=== PATIENT | male | born 1990 | race Caucasian/White ===

== ENCOUNTER 2016-03-04 14:45 | Emergency (ER) | payer SELFPAY ==
[~2016-03-04] VITALS: Ht 167.6 cm; Wt 87.0 kg
[2016-03-04 14:46] VITALS: BP 144/81; PULSE 82; RESP 12; TEMP 98.2; O2SAT 98
[2016-03-04 14:53] VITALS: BP 147/78; PULSE 79; RESP 20; TEMP 98.7; O2SAT 98
--- NOTE | 2016-03-04 15:17 | PD ---
HPI Chief Complaint: Complaint Time Seen by Provider: 14:50 Travel History International Travel<30 days: No Contact w/Intl Traveler<30days: No Traveled to known affect area: No History of Present Illness HPI Skin otherwise healthy 25-year-old male presents to the emergency department complaining of blood in his urine. Denies any other symptoms at all. Symptoms started today. His never had previous similar symptoms. No history of kidney stones. No history of bruising or other bleeding. Is not taking NSAIDs. Did drink some of the weekend. Not otherwise dehydrated. History Past Medical History Medical History: Denies Significant Hx Influenza Vaccination: No Past Surgical History Surgical History: No Previous Surgery Social History Alcohol Use: Yes (2 BERS DAILY ) Tobacco Use: Yes (1/2 PPD ) Allergies-Medications (Allergen,Severity, Reaction): Coded Allergies: No Known Allergies (Unverified , 03/04/16) Reported Meds & Prescriptions Reported Meds & Active Scripts Active No Active Prescriptions or Reported Medications Review of Systems Except as stated in HPI: all other systems reviewed are Neg Physical Exam Narrative GENERAL: Well-appearing 25-year-old man, no acute distress. SKIN: Warm and dry. HEAD: Atraumatic. Normocephalic. CARDIOVASCULAR: Regular rate and rhythm. No murmur appreciated. RESPIRATORY: No accessory muscle use. Clear to auscultation. Breath sounds equal bilaterally. GASTROINTESTINAL: Abdomen soft, non-tender, nondistended. Hepatic and splenic margins not palpable. No CVA tenderness. MUSCULOSKELETAL: No obvious deformities. No edema. NEUROLOGICAL: Awake and alert. No obvious cranial nerve deficits. Motor grossly within normal limits. Normal speech. PSYCHIATRIC: Appropriate mood and affect; insight and judgment normal. Data Data Last Documented VS Vital Signs Date Time Temp Pulse Resp B/P Pulse Ox O2 Delivery O2 Flow Rate FiO2 03/04/16 14:53 98.7 79 20 147/78 98 03/04/16 14:46 Room Air Orders Urinalysis - C+S If Indicated (03/04/16 15:11) Basic Metabolic Panel (Bmp) (03/04/16 15:11) Labs Laboratory Tests Test 03/04/16 03/04/16 15:01 15:51 Urine Color RED Urine Turbidity HAZY Urine pH 7.0 Urine Specific [place] 1.021 Urine Protein 30 mg/dL Urine Glucose (UA) NEG mg/dL Urine Ketones NEG mg/dL Urine Occult Blood LARGE Urine Nitrite NEG Urine Bilirubin NEG Urine Urobilinogen LESS THAN 2.0 MG/DL Urine Leukocyte Esterase TRACE Urine RBC /hpf Microscopic Urinalysis Comment CULT NOT INDICATED Sodium Level 137 MEQ/L Potassium Level 4.1 MEQ/L Chloride Level 103 MEQ/L Carbon Dioxide Level 28.5 MEQ/L Anion Gap 6 MEQ/L Blood Urea Nitrogen 21 MG/DL Creatinine 0.95 MG/DL Estimat Glomerular Filtration 97 ML/MIN Rate Random Glucose 80 MG/DL Calcium Level 8.7 MG/DL [facility] Medical Decision Making Medical Screen Exam Complete: Yes Emergency Medical Condition: Yes Interpretation(s) BMP unremarkable. UA with hematuria. Differential Diagnosis Stone, mass, bleeding diathesis, other Narrative Course Medical decision making 25-year-old male presents emergent department painless hematuria. Looks otherwise well. Father gets kidney stones. He's never had them. It's likely what is going on. Looks otherwise well. We'll check kidney function, check UA. Recommend outpatient follow-up for further evaluation and rule out malignancy. Diagnosis Primary Impression: Hematuria Referrals: Patrice Hess DO call for appointment Additional Instructions: If symptoms not immediately resolve or if they recurred all follow-up with urology for further evaluation. Med/Other Pt SpecificInfo: No Change to Meds Scripts No Active Prescriptions or Reported Meds Disposition: 01 DISCHARGE HOME Condition: Leeroy Alexander MD Mar 04, 2016 15:17
[2016-03-04 16:19] LABS: BLOOD, URINE LARGE (NEG); COMMENT (UR) CULT NOT INDICATED; CULTURE IF INDICATED CULT NOT INDICATED; GLUCOSE,URINE NEG (NEG); KETONE, URINE NEG (NEG); NITRITE,URINE NEG (NEG)
[2016-03-04 16:28] LABS: URINE COLOR RED (YELLW/STRAW)
[2016-03-04 16:43] LABS: BICARBONATE 28.5 MEQ/L (21.0-32.0); POTASSIUM 4.1 MEQ/L (3.5-5.1)
== END 2016-03-04 17:12 | disposition home or self-care (01) ==
LOC: NEPC 14:45
DX: R31.9 Hematuria, unspecified (principal); F17.210 Nicotine dependence, cigarettes, uncomplicated
CPT/HCPCS: 80048; 81001; 99283

== ENCOUNTER 2016-03-08 01:46 | Emergency (ER) | payer SELFPAY ==
[~2016-03-08] VITALS: Ht 167.6 cm; Wt 90.0 kg
[2016-03-08 01:49] VITALS: BP 142/79; PULSE 70; RESP 18; TEMP 98.4; O2SAT 98
[2016-03-08] MEDS ORDERED: SODIUM CHLOR 0.9% 1000 ML INJ 1,000 ML IV SCH (01:52)
[2016-03-08] MEDS ORDERED: MORPHINE SULFATE 4 MG/ML INJ IV PUSH ONE (02:00)
[2016-03-08] MEDS ORDERED: ONDANSETRON HCL 4 MG/2 ML VIAL IVP ONE (02:00)
[2016-03-08] MEDS ORDERED: SODIUM CHLORIDE 0.9% FLUSH 5 ML FLUSH IVF PRN (02:00)
[2016-03-08] MEDS ORDERED: KETOROLAC TROMETHAMINE 30 MG/ML (IVP) VIAL IVP ONE (02:00)
--- NOTE | 2016-03-08 02:17 | PD ---
HPI Chief Complaint: Abdominal Pain Time Seen by Provider: 01:51 Travel History International Travel<30 days: No Contact w/Intl Traveler<30days: No Traveled to known affect area: No History of Present Illness HPI The patient is a 25-year-old male who presents to the emergency department via EMS for abdominal pain. The patient states she was awakened at approximately midnight with right sided flank pain. The pain is located right flank and radiates to right lower quadrant, he felt like he needed to have a bowel movement, however, was unable to have a bowel movement. The patient did complain of nausea associated with abdominal pain, initially was 10/10, now is 5 /10. The patient states he was seen in the emergency department several days ago for hematuria, but had no imaging performed. He denies any history of nephrolithiasis, pyelonephritis, gallstones, or previous abdominal surgeries. He denies any associated fever, chills, or sweats. Symptoms are moderate without any alleviating or exacerbating factors. PFSH Past Medical History Medical History: Denies Significant Hx Tetanus Vaccination: Unknown Influenza Vaccination: No Past Surgical History Surgical History: No Previous Surgery Social History Alcohol Use: Yes (beer ) Tobacco Use: Yes (1/2 PPD ) Substance Use: No Allergies-Medications (Allergen,Severity, Reaction): Coded Allergies: No Known Allergies (Unverified , 03/08/16) Reported Meds & Prescriptions Reported Meds & Active Scripts Active No Active Prescriptions or Reported Medications Review of Systems Except as stated in HPI: all other systems reviewed are Neg General / Constitutional: No: Fever, Chills Cardiovascular: No: Chest Pain or Discomfort Respiratory: No: Shortness of Breath Gastrointestinal: Positive: Nausea, Abdominal Pain, No: Vomiting, Diarrhea Genitourinary: Positive: Hematuria (hematuria 2 days ago), Flank Pain Skin: No Rash Physical Exam Narrative GENERAL: Awake, alert, pleasant 25-year-old male who appears his stated age is in no acute respiratory distress. SKIN: Warm and dry. HEAD: Atraumatic. Normocephalic. EYES: Pupils equal and round. No scleral icterus. No injection or drainage. ENT: No nasal bleeding or discharge. Mucous membranes pink and moist. NECK: Trachea midline. No JVD. CARDIOVASCULAR: Regular rate and rhythm. No murmur appreciated. RESPIRATORY: No accessory muscle use. Clear to auscultation. Breath sounds equal bilaterally. GASTROINTESTINAL: Abdomen soft, mild tenderness and right flank and right lower quadrant. No rebound tenderness, guarding, or rigidity. Back: No CVA tenderness. MUSCULOSKELETAL: No obvious deformities. No clubbing. No cyanosis. No edema. NEUROLOGICAL: Awake and alert. No obvious cranial nerve deficits. Motor grossly within normal limits. Normal speech. PSYCHIATRIC: Appropriate mood and affect; insight and judgment normal. Data Data Last Documented VS Vital Signs Date Time Temp Pulse Resp B/P Pulse Ox O2 Delivery O2 Flow Rate FiO2 03/08/16 01:49 98.4 70 18 142/79 98 Orders Complete Blood Count With Diff (03/08/16 01:52) Comprehensive Metabolic Panel (03/08/16 01:52) Lipase (03/08/16 01:52) Urinalysis - C+S If Indicated (03/08/16 01:52) Ct Abd/Pel W/O Iv Contrast (03/08/16 01:52) Iv Access Insert/Monitor (03/08/16 01:52) Ecg Monitoring (03/08/16 01:52) Oximetry (03/08/16 01:52) Morphine Inj (Morphine Inj) (03/08/16 02:00) Ondansetron Inj (Zofran Inj) (03/08/16 02:00) Sodium Chlor 0.9% 1000 Ml Inj (Ns 1000 M (03/08/16 01:52) Sodium Chloride 0.9% Flush (Ns Flush) (03/08/16 02:00) Ketorolac Inj (Toradol Inj) (03/08/16 02:00) Urine Culture (03/08/16 02:20) Labs Laboratory Tests Test 03/08/16 03/08/16 02:00 02:20 White Blood Count 5.8 TH/MM3 Red Blood Count 4.01 MIL/MM3 Hemoglobin 13.5 GM/DL Hematocrit 39.1 % Mean Corpuscular Volume 97.6 FL Mean Corpuscular Hemoglobin 33.7 PG Mean Corpuscular Hemoglobin 34.6 % Concent Red Cell Distribution Width 12.1 % Platelet Count 207 TH/MM3 Mean Platelet Volume 9.6 FL Neutrophils (%) (Auto) 65.3 % Lymphocytes (%) (Auto) 21.5 % Monocytes (%) (Auto) 9.9 % Eosinophils (%) (Auto) 2.8 % Basophils (%) (Auto) 0.5 % Neutrophils # (Auto) 3.8 TH/MM3 Lymphocytes # (Auto) 1.3 TH/MM3 Monocytes # (Auto) 0.6 TH/MM3 Eosinophils # (Auto) 0.2 TH/MM3 Basophils # (Auto) 0.0 TH/MM3 CBC Comment DIFF FINAL Differential Comment Sodium Level 141 MEQ/L Potassium Level 3.7 MEQ/L Chloride Level 109 MEQ/L Carbon Dioxide Level 25.5 MEQ/L Anion Gap 7 MEQ/L Blood Urea Nitrogen 20 MG/DL Creatinine 1.01 MG/DL Estimat Glomerular Filtration 90 ML/MIN Rate Random Glucose 106 MG/DL Calcium Level 8.2 MG/DL Total Bilirubin 0.3 MG/DL Aspartate Amino Transf 15 U/L (AST/SGOT) Alanine Aminotransferase 22 U/L (ALT/SGPT) Alkaline Phosphatase 50 U/L Total Protein 6.7 GM/DL Albumin 3.6 GM/DL Lipase 74 U/L Urine Color YELLOW Urine Turbidity CLEAR Urine pH 6.0 Urine Specific [place] 1.017 Urine Protein TRACE mg/dL Urine Glucose (UA) NEG mg/dL Urine Ketones NEG mg/dL Urine Occult Blood MOD Urine Nitrite NEG Urine Bilirubin NEG Urine Urobilinogen LESS THAN 2.0 MG/DL Urine Leukocyte Esterase NEG Urine RBC /hpf Urine WBC 20 /hpf Urine Bacteria RARE /hpf Urine Mucus FEW /lpf Microscopic Urinalysis Comment CULTURE INDICATED MDM Medical Decision Making Medical Screen Exam Complete: Yes Emergency Medical Condition: Yes Medical Record Reviewed: Yes Interpretation(s) Laboratory Tests Test 03/08/16 03/08/16 02:00 02:20 White Blood Count 5.8 TH/MM3 Red Blood Count 4.01 MIL/MM3 Hemoglobin 13.5 GM/DL Hematocrit 39.1 % Mean Corpuscular Volume 97.6 FL Mean Corpuscular Hemoglobin 33.7 PG Mean Corpuscular Hemoglobin 34.6 % Concent Red Cell Distribution Width 12.1 % Platelet Count 207 TH/MM3 Mean Platelet Volume 9.6 FL Neutrophils (%) (Auto) 65.3 % Lymphocytes (%) (Auto) 21.5 % Monocytes (%) (Auto) 9.9 % Eosinophils (%) (Auto) 2.8 % Basophils (%) (Auto) 0.5 % Neutrophils # (Auto) 3.8 TH/MM3 Lymphocytes # (Auto) 1.3 TH/MM3 Monocytes # (Auto) 0.6 TH/MM3 Eosinophils # (Auto) 0.2 TH/MM3 Basophils # (Auto) 0.0 TH/MM3 CBC Comment DIFF FINAL Differential Comment Sodium Level 141 MEQ/L Potassium Level 3.7 MEQ/L Chloride Level 109 MEQ/L Carbon Dioxide Level 25.5 MEQ/L Anion Gap 7 MEQ/L Blood Urea Nitrogen 20 MG/DL Creatinine 1.01 MG/DL Estimat Glomerular Filtration 90 ML/MIN Rate Random Glucose 106 MG/DL Calcium Level 8.2 MG/DL Total Bilirubin 0.3 MG/DL Aspartate Amino Transf 15 U/L (AST/SGOT) Alanine Aminotransferase 22 U/L (ALT/SGPT) Alkaline Phosphatase 50 U/L Total Protein 6.7 GM/DL Albumin 3.6 GM/DL Lipase 74 U/L Urine Color YELLOW Urine Turbidity CLEAR Urine pH 6.0 Urine Specific [place] 1.017 Urine Protein TRACE mg/dL Urine Glucose (UA) NEG mg/dL Urine Ketones NEG mg/dL Urine Occult Blood MOD Urine Nitrite NEG Urine Bilirubin NEG Urine Urobilinogen LESS THAN 2.0 MG/DL Urine Leukocyte Esterase NEG Urine RBC /hpf Urine WBC 20 /hpf Urine Bacteria RARE /hpf Urine Mucus FEW /lpf Microscopic Urinalysis Comment CULTURE INDICATED Last Impressions Abdomen/Pelvis CT 03/08/16 0152 Signed Impressions: Service Date/Time: Tuesday, March 08, 2016 02:39 - CONCLUSION: Approximate 3- 4 mm right proximal ureteral stone causing slight hydronephrosis. Curly Pierre MD Differential Diagnosis Differential diagnosis includes nephrolithiasis, hydronephrosis, pyelonephritis , atypical appendicitis, testicular torsion, epididymitis. Narrative Course IV was established, labs are drawn and sent, and the patient was placed on cardiac telemetry monitoring and continuous pulse oximetry monitoring. The patient was administered morphine, Toradol, Zofran, and IV fluids. UA was ordered. CT of the abdomen and pelvis without IV contrast was ordered. UA reveals 20 WBCs and innumerable RBCs. CT reveals a 3-4 mm stone. Patient has mild hydronephrosis. The patient was reevaluated at 3:10 AM, his pain had resolved. The patient will be discharged home on Bactrim, [place], ibuprofen, and Flomax. He is advised to strain his urine and follow-up with urologist. Return if symptoms worsen or progress. Diagnosis Primary Impression: Nephrolithiasis Patient Instructions: General Instructions Additional Instructions: Please provide a patient a strainer for his urine. Please provide the patient a copy of his CT results and lab results at discharge. Medications as directed. Follow-up with urology. Return if symptoms worsen or progress. Med/Other Pt SpecificInfo: Prescription(s) given Scripts Sulfamethoxazole-Trimethoprim (Bactrim DS)800-160 Mg Tab1 Tab PO BID #14 TAB Ref 0 Prov:Jim Avitia MD 03/08/16 Tamsulosin (Flomax)0.4 Mg Cap0.4 Mg PO HS 7 Days Ref 0 Prov:Jim Avitia MD 03/08/16 Ibuprofen 600 Mg Qgi548 Mg PO Q6H PRN (Pain/Inflammation) #20 TAB Ref 0 Prov:Jim Avitia MD 03/08/16 Hydrocodone-Acetaminophen ([place])5-325 mg Tab1 Tab PO Q6H PRN (PAIN) #20 TAB Ref 0 Prov:Jim Avitia MD 03/08/16 Disposition: 01 DISCHARGE HOME Condition: Stable Jim Avitia MD Mar 08, 2016 02:17
[2016-03-08 02:18] LABS: AUTOMATED NEUTROPHIL # 3.8 TH/MM3 (1.8-7.7); BASOPHIL % 0.5 % (0.0-2.0); EOSINOPHIL # 0.2 TH/MM3 (0-0.4); EOSINOPHIL % 2.8 % (0.0-4.0); HEMATOCRIT 39.1 % (39.0-51.0); HEMO FLAGS DIFF FINAL; LYMPH % 21.5 % (9.0-44.0); LYMPHOCYTE # 1.3 TH/MM3 (1.0-4.8); MEAN CELL VOLUME 97.6 FL (80.0-100.0); MEAN CORPUSCULAR HEMOGLOBIN 33.7 PG (27.0-34.0); MEAN CORPUSCULAR HGB CONC 34.6 % (32.0-36.0); MONO % 9.9 % (0.0-8.0); NEUT % 65.3 % (16.0-70.0); PLATELET COUNT 207 TH/MM3 (150-450); RED BLOOD COUNT 4.01 MIL/MM3 (4.50-5.90); RED CELL DISTRIBUTION WIDTH 12.1 % (11.6-17.2); WHITE BLOOD COUNT 5.8 TH/MM3 (4.0-11.0)
[2016-03-08 02:34] LABS: ALT (GPT) 22 U/L (12-78); ANION GAP 7 MEQ/L (5-15); AST (GOT) 15 U/L (15-37); BICARBONATE 25.5 MEQ/L (21.0-32.0); BLOOD UREA NITROGEN 20 MG/DL (7-18); CHLORIDE 109 MEQ/L (98-107); GLOMERULAR FILTRATION RATE 90 ML/MIN (>89); POTASSIUM 3.7 MEQ/L (3.5-5.1); SODIUM (NA) 141 MEQ/L (136-145)
[2016-03-08 02:37] LABS: ALKALINE PHOSPHATASE 50 U/L (45-117); TOTAL BILIRUBIN ADULT 0.3 MG/DL (0.2-1.0)
[2016-03-08 02:49] LABS: BACTERIA, URINE RARE /hpf; BLOOD, URINE MOD (NEG); COMMENT (UR) CULTURE INDICATED; CULTURE IF INDICATED CULTURE INDICATED; GLUCOSE,URINE NEG (NEG); KETONE, URINE NEG (NEG); MUCUS URINE FEW /lpf (OCC); NITRITE,URINE NEG (NEG); URINE COLOR YELLOW (YELLW/STRAW)
--- NOTE | 2016-03-08 03:01 | RADRPT ---
EXAM DATE/TIME: 03/08/2016 02:39 [facility] COMPARISON: No previous studies available for comparison. INDICATIONS : Right flank and right lower quadrant pain today. ORAL CONTRAST: No oral contrast ingested. RADIATION DOSE: 12.29 CTDIvol (mGy) MEDICAL HISTORY : None SURGICAL HISTORY : None. ENCOUNTER: Initial ACUITY: 1 day PAIN SCALE: 5/10 LOCATION: Right flank TECHNIQUE: Volumetric scanning of the abdomen and pelvis was performed. Using automated exposure control and ad justment of the mA and/or kV according to patient size, radiation dose was kept as low as reasonably achievable to obtain optimal diagnostic quality images. FINDINGS: CT Abdomen: There is slight hydronephrosis in the right kidney due to an approximate 3-4 mm right pro ximal ureteral stone. The liver, spleen, pancreas, left kidney, adrenals are unremarkable. There is n o evidence for any appreciable pathological adenopathy, free fluid, or bowel obstruction. CT pelvis: There is no evidence for mass, abscess formation, or any significant adenopathy within the pelvis. CONCLUSION: Approximate 3-4 mm right proximal ureteral stone causing slight hydronephrosis. Curly Pierre MD on March 08, 2016 at 2:57 Board Certified Radiologist. This report was verified electronically.
[2016-03-08] MEDS ORDERED: IBUP-232 PO (03:12)
[2016-03-08] MEDS ORDERED: BACT800T5 PO (03:12)
[2016-03-08] MEDS ORDERED: TAMS5CAP PO (03:12)
[2016-03-08] MEDS ORDERED: NORC5TAB PO (03:12)
== END 2016-03-08 03:34 | disposition home or self-care (01) ==
LOC: NEPC 01:46
DX: N20.0 Calculus of kidney (principal); F10.10 Alcohol abuse, uncomplicated; F17.210 Nicotine dependence, cigarettes, uncomplicated
CPT/HCPCS: 74176; 80053; 81001; 83690; 85025; 87086; 96374; 96375; 99284; J1885; J2270; J7030

== ENCOUNTER 2016-03-23 08:22 | Emergency (ER) | payer SELFPAY ==
[~2016-03-23] VITALS: Ht 167.6 cm; Wt 92.0 kg
[~2016-03-23 08:22] MED LIST: BACT800T5 PO; IBUP-232 PO; NORC5TAB PO; TAMS5CAP PO
[2016-03-23 08:24] VITALS: BP 162/95; PULSE 104; RESP 20; TEMP 98.2; O2SAT 95
[2016-03-23] MEDS ORDERED: SODIUM CHLOR 0.9% 1000 ML INJ 1,000 ML IV SCH (08:40)
[2016-03-23] MEDS ORDERED: MORPHINE SULFATE 4 MG/ML INJ IV PUSH ONE (08:45)
[2016-03-23] MEDS ORDERED: SODIUM CHLORIDE 0.9% FLUSH 5 ML FLUSH IVF PRN (08:45)
[2016-03-23] MEDS ORDERED: ONDANSETRON HCL 4 MG/2 ML VIAL IVP ONE (08:45)
--- NOTE | 2016-03-23 08:59 | PD ---
HPI Chief Complaint: Abdominal Pain Time Seen by Provider: 08:34 Travel History International Travel<30 days: No Contact w/Intl Traveler<30days: No Traveled to known affect area: No History of Present Illness HPI Patient is a 25-year-old male who presents to emergency room with complaints of right lower abdominal pain. Patient reports that he was seen in the emergency room a few weeks ago and was diagnosed with a 3-4 mm right-sided kidney stone. Patient reports that he does not think that he passed this kidney stone. Reports that since the pain has been overall intermittent in nature. Patient reports that this morning, he began to have intractable right lower quadrant abdominal pain. Patient reports severe intractable pain with nausea. Denies fevers or chills. Denies dysuria, urinary urgency or frequency. Denies hematuria with this. PFSH Past Medical History Medical History: Denies Significant Hx Diminished Hearing: No Tetanus Vaccination: > 5 Years Influenza Vaccination: No Past Surgical History Surgical History: No Previous Surgery Family History Family History: Negative Social History Alcohol Use: Yes (beer ) Tobacco Use: Yes (1/2 PPD ) Substance Use: No Allergies-Medications (Allergen,Severity, Reaction): Coded Allergies: No Known Allergies (Unverified , 03/23/16) Reported Meds & Prescriptions Reported Meds & Active Scripts Active Flomax (Tamsulosin HCl) 0.4 Mg Cap 0.4 Mg PO HS Percocet (Oxycodone-Acetaminophen) 5-325 mg Tab 1 Tab PO Q4H PRN Review of Systems General / Constitutional: No: Fever Eyes: No: Visual changes HENT: No: Headaches Cardiovascular: No: Chest Pain or Discomfort Respiratory: No: Shortness of Breath Gastrointestinal: Positive: Nausea, Abdominal Pain, No: Diarrhea Genitourinary: No: Dysuria Musculoskeletal: No: Pain Skin: No Rash Neurologic: No: Weakness Psychiatric: No: Depression Endocrine: No: Polydipsia Hematologic/Lymphatic: No: Easy Bruising Physical Exam Narrative GENERAL: Moderate distress SKIN: Warm and dry. HEAD: Atraumatic. Normocephalic. EYES: No injection or drainage. ENT: No nasal bleeding or discharge. Mucous membranes pink and moist. NECK: Trachea midline. No JVD. CARDIOVASCULAR: Regular rate and rhythm. No murmur appreciated. RESPIRATORY: No accessory muscle use. Clear to auscultation. Breath sounds equal bilaterally. GASTROINTESTINAL: Abdomen soft, diffuse abdominal pain with guarding on evaluation MUSCULOSKELETAL: No obvious deformities. No clubbing. No cyanosis. No edema. NEUROLOGICAL: Awake and alert. No obvious cranial nerve deficits. Motor grossly within normal limits. Normal speech. PSYCHIATRIC: Patient anxious on exam; insight and judgment normal. Data Data Last Documented VS Vital Signs Date Time Temp Pulse Resp B/P Pulse Ox O2 Delivery O2 Flow Rate FiO2 03/23/16 09:48 20 03/23/16 08:24 98.2 104 162/95 95 Orders Complete Blood Count With Diff (03/23/16 08:40) Comprehensive Metabolic Panel (03/23/16 08:40) Prothrombin Time / Inr (Pt) (03/23/16 08:40) Act Partial Throm Time (Ptt) (03/23/16 08:40) Urinalysis - C+S If Indicated (03/23/16 08:40) Iv Access Insert/Monitor (03/23/16 08:40) Morphine Inj (Morphine Inj) (03/23/16 08:45) Ondansetron Inj (Zofran Inj) (03/23/16 08:45) Sodium Chlor 0.9% 1000 Ml Inj (Ns 1000 M (03/23/16 08:40) Sodium Chloride 0.9% Flush (Ns Flush) (03/23/16 08:45) Abdomen, Kub Only (03/23/16 ) Ketorolac Inj (Toradol Inj) (03/23/16 09:00) Us Kidney/Renal/Bladder (03/23/16 ) Labs Laboratory Tests Test 03/23/16 08:45 White Blood Count 6.2 TH/MM3 Red Blood Count 4.30 MIL/MM3 Hemoglobin 14.5 GM/DL Hematocrit 41.9 % Mean Corpuscular Volume 97.5 FL Mean Corpuscular Hemoglobin 33.7 PG Mean Corpuscular Hemoglobin 34.6 % Concent Red Cell Distribution Width 12.3 % Platelet Count 237 TH/MM3 Mean Platelet Volume 9.5 FL Neutrophils (%) (Auto) 58.2 % Lymphocytes (%) (Auto) 29.6 % Monocytes (%) (Auto) 9.0 % Eosinophils (%) (Auto) 2.5 % Basophils (%) (Auto) 0.7 % Neutrophils # (Auto) 3.6 TH/MM3 Lymphocytes # (Auto) 1.8 TH/MM3 Monocytes # (Auto) 0.6 TH/MM3 Eosinophils # (Auto) 0.2 TH/MM3 Basophils # (Auto) 0.0 TH/MM3 CBC Comment DIFF FINAL Differential Comment Prothrombin Time 11.3 SEC Prothromb Time International 1.0 RATIO Ratio Activated Partial 25.6 SEC Thromboplast Time Urine Color YELLOW Urine Turbidity HAZY Urine pH 8.5 Urine Specific [place] 1.021 Urine Protein 30 mg/dL Urine Glucose (UA) NEG mg/dL Urine Ketones NEG mg/dL Urine Occult Blood MOD Urine Nitrite NEG Urine Bilirubin NEG Urine Urobilinogen LESS THAN 2.0 MG/DL Urine Leukocyte Esterase NEG Urine RBC /hpf Urine Bacteria RARE /hpf Urine Mucus FEW /lpf Microscopic Urinalysis Comment CULT NOT INDICATED Sodium Level 140 MEQ/L Potassium Level 3.9 MEQ/L Chloride Level 105 MEQ/L Carbon Dioxide Level 23.1 MEQ/L Anion Gap 12 MEQ/L Blood Urea Nitrogen 10 MG/DL Creatinine 1.49 MG/DL Estimat Glomerular Filtration 57 ML/MIN Rate Random Glucose 87 MG/DL Calcium Level 8.7 MG/DL Total Bilirubin 0.3 MG/DL Aspartate Amino Transf 20 U/L (AST/SGOT) Alanine Aminotransferase 27 U/L (ALT/SGPT) Alkaline Phosphatase 63 U/L Total Protein 8.0 GM/DL Albumin 4.4 GM/DL [facility] Medical Decision Making Medical Screen Exam Complete: Yes Emergency Medical Condition: Yes Interpretation(s) Vital Signs Date Time Temp Pulse Resp B/P Pulse Ox O2 Delivery O2 Flow Rate FiO2 03/23/16 08:24 98.2 104 20 162/95 95 CBC & BMP Diagram 03/23/16 08:45 Last Impressions Abdomen X-Ray 03/23/16 0000 Signed Impressions: Service Date/Time: Wednesday, March 23, 2016 09:02 - CONCLUSION: No acute disease. Abner Anguiano MD Differential Diagnosis Kidney stones, pyleonephritis, cystitis, appendicitis Narrative Course Patient is a 25-year-old male who presents to emergency room for evaluation of abdominal pain. Reports that symptoms began initially a few weeks ago was diagnosed with a 3-4 mm right-sided kidney stone. Reports that he does not think this kidney stone passed yet. Patient reports that he woke up this morning with severe pain to his right side of his abdomen to his bladder - reports that his symptoms are associated with nausea. An IV line was established on patient. Labs ordered as well as UA. IV fluids as well as antiemetics and pain medications ordered. Previous records reviewed Patient had a CAT scan of his abdomen and pelvis without IV contrast on March 08, 2016. CT showed an approximate 3-4 mm right proximal ureteral stone causing slight hydronephrosis. KUB ordered for evaluation of stone placement this time. Patient could potentially be passing this kidney stone at this time as he feels increased pain and pressure in his bladder. Creatinine is 1.49 today which is elevated from baseline. Creatine on March 08, 2016 was 1.01 Patient reports that he is more comfortable at this time. KUB does not show any evidence stone. Patient sent for ultrasound of kidneys to evaluate for possible hydronephrosis. Ultimately, patient understands that he will need to follow-up with urologist as he did not call to make this appointment when he was first diagnosed with a kidney stone because he reports that he thought that he would be feeling much better and would have complete resolutions of symptoms by this time. Patient has run out of his prescription for pain medications, I will refill his pain medicine prescription. Reviewed US report with patient. Patient with no hydronephrosis. Patient will follow-up with urologist as outpatient and return to ER as needed Diagnosis Primary Impression: Right flank pain Additional Impressions: Kidney stone Renal insufficiency Referrals: Eduardo Thompson MD Patient Instructions: General Instructions, Narcotic given in the ED Departure Forms: Tests/Procedures, Work Release Enter return to work date: Mar 25, 2016 Additional Instructions: Please provide patient with a copy this studies and lab work at discharge Please call urologist as soon as possible for earliest follow-up appointment Please return to the emergency room as needed Do not drive or operate heavy machinery while taking narcotic pain medication Return to emergency room if symptoms progress or worsen Please strain your urine and bring your kidney stone to your urologist office for further work up of kidney stone Med/Other Pt SpecificInfo: Prescription(s) given Scripts Tamsulosin (Flomax)0.4 Mg Cap0.4 Mg PO HS #10 CAP Ref 0 Prov:Ling Brown DO 03/23/16 Oxycodone-Acetaminophen (Percocet)5-325 mg Tab1 Tab PO Q4H PRN (PAIN) #15 TAB Ref 0 Prov:Ling Brown DO 03/23/16 Disposition: 01 DISCHARGE HOME Condition: Stable Ling Brown DO Mar 23, 2016 08:59
[2016-03-23] MEDS ORDERED: KETOROLAC TROMETHAMINE 30 MG/ML (IVP) VIAL IV PUSH ONE (09:00)
--- NOTE | 2016-03-23 09:05 | RADRPT ---
EXAM DATE/TIME: 03/23/2016 09:02 [facility] COMPARISON: No previous studies available for comparison. INDICATIONS : Right sided abdominal pain on and off for the past two weeks. Got really bad today. MEDICAL HISTORY : None. SURGICAL HISTORY : None. ENCOUNTER: Initial ACUITY: 2 weeks PAIN SCORE: 10/10 LOCATION: Right abdomen. FINDINGS: Supine view of the abdomen was performed. The abdominal bowel gas pattern is normal. No abnormal ma sses, calcifications, or organomegaly is seen. The osseous structures are unremarkable. CONCLUSION: No acute disease. Abner Anguiano MD on March 23, 2016 at 9:04 Board Certified Radiologist. This report was verified electronically.
[2016-03-23 09:18] LABS: BACTERIA, URINE RARE /hpf; BLOOD, URINE MOD (NEG); COMMENT (UR) CULT NOT INDICATED; CULTURE IF INDICATED CULT NOT INDICATED; GLUCOSE,URINE NEG (NEG); KETONE, URINE NEG (NEG); MUCUS URINE FEW /lpf (OCC); NITRITE,URINE NEG (NEG); PH, URINE 8.5 (5.0-8.5); URINE COLOR YELLOW (YELLW/STRAW)
[2016-03-23 09:20] LABS: AUTOMATED NEUTROPHIL # 3.6 TH/MM3 (1.8-7.7); BASOPHIL % 0.7 % (0.0-2.0); EOSINOPHIL # 0.2 TH/MM3 (0-0.4); EOSINOPHIL % 2.5 % (0.0-4.0); HEMATOCRIT 41.9 % (39.0-51.0); HEMO FLAGS DIFF FINAL; LYMPH % 29.6 % (9.0-44.0); LYMPHOCYTE # 1.8 TH/MM3 (1.0-4.8); MEAN CELL VOLUME 97.5 FL (80.0-100.0); MEAN CORPUSCULAR HEMOGLOBIN 33.7 PG (27.0-34.0); MEAN CORPUSCULAR HGB CONC 34.6 % (32.0-36.0); NEUT % 58.2 % (16.0-70.0); PLATELET COUNT 237 TH/MM3 (150-450); RED CELL DISTRIBUTION WIDTH 12.3 % (11.6-17.2); WHITE BLOOD COUNT 6.2 TH/MM3 (4.0-11.0)
[2016-03-23 09:26] LABS: APTT (PATIENT) 25.6 SEC (24.3-30.1); PROTHROMBIN TIME - PATIENT 11.3 SEC (9.8-11.6)
[2016-03-23 09:34] LABS: ALT (GPT) 27 U/L (12-78); ANION GAP 12 MEQ/L (5-15); AST (GOT) 20 U/L (15-37); BICARBONATE 23.1 MEQ/L (21.0-32.0); BLOOD UREA NITROGEN 10 MG/DL (7-18); CHLORIDE 105 MEQ/L (98-107); GLOMERULAR FILTRATION RATE 57 ML/MIN (>89); POTASSIUM 3.9 MEQ/L (3.5-5.1); SODIUM (NA) 140 MEQ/L (136-145)
[2016-03-23 09:37] LABS: ALKALINE PHOSPHATASE 63 U/L (45-117); TOTAL BILIRUBIN ADULT 0.3 MG/DL (0.2-1.0)
[2016-03-23 09:48] VITALS: RESP 20
[2016-03-23] MEDS ORDERED: TAMS5CAP PO (11:55)
[2016-03-23] MEDS ORDERED: PERC5TAB12 PO (11:55)
--- NOTE | 2016-03-23 11:56 | RADRPT ---
EXAM DATE/TIME: 03/23/2016 11:26 [facility] COMPARISON: No previous studies available for comparison. INDICATIONS : Flank pain. MEDICAL HISTORY : Renal calculi. Flank pain. Lower abdominal pain. SURGICAL HISTORY : None. ENCOUNTER: Initial ACUITY: 3 weeks PAIN SCORE: 6/10 LOCATION: Bilateral flank MEASUREMENTS: RIGHT KIDNEY: 12.7 x 6.5 x 6.0 cm LEFT KIDNEY: 11.0 x 5.2 x 4.8 cm FINDINGS: RIGHT KIDNEY: Renal cortex is normal in thickness and echotexture. No hydronephrosis, stone, or mass. LEFT KIDNEY: Renal cortex is normal in thickness and echotexture. No hydronephrosis, stone, or mass. BLADDER: Bladder is empty and not seen. CONCLUSION: 1. Normal renal sonogram. 2. Bladder not seen. Abner Anguiano MD on March 23, 2016 at 11:53 Board Certified Radiologist. This report was verified electronically.
[2016-03-23] MEDS ORDERED: oxyCODONE/ACETAMINOPHEN 5 MG/325 MG TAB PO ONE (12:30)
[2016-03-23 12:34] VITALS: BP 116/74
== END 2016-03-23 12:35 | disposition home or self-care (01) ==
LOC: NEPC 08:22
DX: N20.0 Calculus of kidney (principal); R10.31 Right lower quadrant pain; N28.9 Disorder of kidney and ureter, unspecified; F17.210 Nicotine dependence, cigarettes, uncomplicated
CPT/HCPCS: 74000; 76775; 80053; 81001; 85025; 85610; 85730; 96361; 96374; 96375; 99284; J1885; J2270; J2405; J7030

== ENCOUNTER 2016-04-19 14:58 | Emergency (ER) | payer SELFPAY ==
[~2016-04-19] VITALS: Ht 170.2 cm; Wt 95.0 kg
[~2016-04-19 14:58] MED LIST changes: -BACT800T5 PO; -IBUP-232 PO; -NORC5TAB PO; +PERC5TAB12 PO
[2016-04-19 15:01] VITALS: BP 149/81; PULSE 80; RESP 22; TEMP 98.4; O2SAT 98
--- NOTE | 2016-04-19 15:18 | PD ---
HPI Chief Complaint: Chest Pain Time Seen by Provider: 15:18 Travel History International Travel<30 days: No Contact w/Intl Traveler<30days: No Traveled to known affect area: No History of Present Illness HPI 25-year-old male with no significant medical history presents to the emergency department for evaluation. Patient states that he was out in his backyard smoking a cigarette when he developed a left-sided chest pain. It radiated into his arm that became numb. He had associated nausea and diaphoresis. He contacted 911 who came and evaluated him. They advised him that he was likely having a panic attack. Patient states he has never had a panic attack in the past. He does have anxiety. He does smoke tobacco cigarettes daily and consume alcohol daily. Denies any recent illnesses, fever, chills. Is not currently having any chest pain. Has no cardiac history. No family history of early cardiac . No other symptoms to report. PFSH Past Medical History Anxiety: Yes Diminished Hearing: No Social History Alcohol Use: Yes (beer ) Tobacco Use: Yes (1/2 PPD ) Substance Use: No Allergies-Medications (Allergen,Severity, Reaction): Coded Allergies: No Known Allergies (Unverified , 04/19/16) Reported Meds & Prescriptions Reported Meds & Active Scripts Active Vistaril (Hydroxyzine Pamoate) 50 Mg Cap 50 Mg PO TID PRN Review of Systems Except as stated in HPI: all other systems reviewed are Neg Physical Exam Narrative GENERAL: Well-nourished male patient, lying in bed in no acute distress. SKIN: Warm and dry. HEAD: Atraumatic. Normocephalic. EYES: Pupils equal and round. No scleral icterus. No injection or drainage. ENT: No nasal bleeding or discharge. Mucous membranes pink and moist. NECK: Trachea midline. No JVD. CARDIOVASCULAR: Regular rate and rhythm. No murmur appreciated. RESPIRATORY: No accessory muscle use. Clear to auscultation. Breath sounds equal bilaterally. GASTROINTESTINAL: Abdomen soft, non-tender, nondistended. Hepatic and splenic margins not palpable. MUSCULOSKELETAL: No obvious deformities. No clubbing. No cyanosis. No edema. NEUROLOGICAL: Awake and alert. No obvious cranial nerve deficits. Motor grossly within normal limits. Normal speech. PSYCHIATRIC: Appropriate mood and affect; insight and judgment normal. Data Data Last Documented VS Vital Signs Date Time Temp Pulse Resp B/P Pulse Ox O2 Delivery O2 Flow Rate FiO2 04/19/16 15:01 98.4 80 22 149/81 98 Orders Electrocardiogram (04/19/16 ) Complete Blood Count With Diff (04/19/16 15:17) Basic Metabolic Panel (Bmp) (04/19/16 15:17) Ckmb (Isoenzyme) Profile (04/19/16 15:17) Magnesium (Mg) (04/19/16 15:17) Prothrombin Time / Inr (Pt) (04/19/16 15:17) Act Partial Throm Time (Ptt) (04/19/16 15:17) Troponin I (04/19/16 15:17) Chest, Single Ap (04/19/16 15:17) CKMB (04/19/16 16:18) CKMB% (04/19/16 16:18) Hydroxyzine Pamoate (Vistaril) (04/19/16 18:30) Labs Laboratory Tests Test 04/19/16 16:18 White Blood Count 7.6 TH/MM3 Red Blood Count 4.58 MIL/MM3 Hemoglobin 15.7 GM/DL Hematocrit 44.0 % Mean Corpuscular Volume 96.1 FL Mean Corpuscular Hemoglobin 34.3 PG Mean Corpuscular Hemoglobin 35.7 % Concent Red Cell Distribution Width 12.1 % Platelet Count 218 TH/MM3 Mean Platelet Volume 9.5 FL Neutrophils (%) (Auto) 70.3 % Lymphocytes (%) (Auto) 19.3 % Monocytes (%) (Auto) 7.7 % Eosinophils (%) (Auto) 2.0 % Basophils (%) (Auto) 0.7 % Neutrophils # (Auto) 5.4 TH/MM3 Lymphocytes # (Auto) 1.5 TH/MM3 Monocytes # (Auto) 0.6 TH/MM3 Eosinophils # (Auto) 0.2 TH/MM3 Basophils # (Auto) 0.1 TH/MM3 CBC Comment DIFF FINAL Differential Comment Prothrombin Time 11.1 SEC Prothromb Time International 1.0 RATIO Ratio Activated Partial 24.5 SEC Thromboplast Time Sodium Level 141 MEQ/L Potassium Level 3.6 MEQ/L Chloride Level 106 MEQ/L Carbon Dioxide Level 24.8 MEQ/L Anion Gap 10 MEQ/L Blood Urea Nitrogen 21 MG/DL Creatinine 1.02 MG/DL Estimat Glomerular Filtration 89 ML/MIN Rate Random Glucose 76 MG/DL Calcium Level 9.3 MG/DL Magnesium Level 2.1 MG/DL Total Creatine Kinase 202 U/L Creatine Kinase MB 1.3 NG/ML Troponin I LESS THAN 0.02 NG/ML MDM Medical Decision Making Medical Screen Exam Complete: Yes Emergency Medical Condition: Yes Medical Record Reviewed: Yes Differential Diagnosis Anxiety versus chest wall pain versus pleuritic pain versus less likely ACS Narrative Course 25-year-old male presents to emergency department for evaluation. Workup is initiated in triage. Once a medical bed becomes available, patient will be transferred and care assumed by that provider. Scripts Hydroxyzine Pamoate (Vistaril)50 Mg Cap50 Mg PO TID PRN (ANXIETY) #30 CAP Ref 0 Prov:Martina Lombardi MD 04/19/16 Condition: Stable Sravani Cueto Apr 19, 2016 15:18
--- NOTE | 2016-04-19 16:18 | RADRPT ---
EXAM DATE/TIME: 04/19/2016 15:30 [facility] COMPARISON: No previous studies available for comparison. INDICATIONS : Left sided chest pain and left arm pain. MEDICAL HISTORY : None. SURGICAL HISTORY : None. ENCOUNTER: Initial ACUITY: 1 day PAIN SCORE: 8/10 LOCATION: chest FINDINGS: A single view of the chest demonstrates the lungs to be symmetrically aerated without evidence of mas s, infiltrate or effusion. The cardiomediastinal contours are unremarkable. Osseous structures are intact. CONCLUSION: Normal examination. Dsehawn Miguel Jr., MD on April 19, 2016 at 16:17 Board Certified Radiologist. This report was verified electronically.
[2016-04-19 16:47] LABS: AUTOMATED NEUTROPHIL # 5.4 TH/MM3 (1.8-7.7); BASOPHIL # 0.1 TH/MM3 (0-0.2); BASOPHIL % 0.7 % (0.0-2.0); EOSINOPHIL # 0.2 TH/MM3 (0-0.4); HEMO FLAGS DIFF FINAL; LYMPH % 19.3 % (9.0-44.0); LYMPHOCYTE # 1.5 TH/MM3 (1.0-4.8); MEAN CELL VOLUME 96.1 FL (80.0-100.0); MEAN CORPUSCULAR HEMOGLOBIN 34.3 PG (27.0-34.0); MEAN CORPUSCULAR HGB CONC 35.7 % (32.0-36.0); MONO % 7.7 % (0.0-8.0); NEUT % 70.3 % (16.0-70.0); PLATELET COUNT 218 TH/MM3 (150-450); RED BLOOD COUNT 4.58 MIL/MM3 (4.50-5.90); RED CELL DISTRIBUTION WIDTH 12.1 % (11.6-17.2); WHITE BLOOD COUNT 7.6 TH/MM3 (4.0-11.0)
[2016-04-19 16:56] LABS: APTT (PATIENT) 24.5 SEC (24.3-30.1); PROTHROMBIN TIME - PATIENT 11.1 SEC (9.8-11.6)
[2016-04-19 17:17] LABS: ANION GAP 10 MEQ/L (5-15); BICARBONATE 24.8 MEQ/L (21.0-32.0); BLOOD UREA NITROGEN 21 MG/DL (7-18); CHLORIDE 106 MEQ/L (98-107); GLOMERULAR FILTRATION RATE 89 ML/MIN (>89); MAGNESIUM 2.1 MG/DL (1.5-2.5); POTASSIUM 3.6 MEQ/L (3.5-5.1); SODIUM (NA) 141 MEQ/L (136-145)
[2016-04-19 17:20] LABS: CREATINE KINASE 202 U/L (39-308)
[2016-04-19 17:33] LABS: CKMB 1.3 NG/ML (0.5-3.6)
[2016-04-19] MEDS ORDERED: VIST50CA PO (18:26)
--- NOTE | 2016-04-19 18:30 | PD ---
Physical Exam Date Seen by Provider: Apr 19, 2016 Time Seen by Provider: 18:26 Narrative 25-year-old male that presents to the ED for evaluation of possible anxiety. Please refer to Sravani SNIDER's note. She was initially the first prior to see the patient. Patient apparently had some chest discomfort for and possible anxiety. Patient had workup started at triage facility. Data Data Last Documented VS Vital Signs Date Time Temp Pulse Resp B/P Pulse Ox O2 Delivery O2 Flow Rate FiO2 04/19/16 15:01 98.4 80 22 149/81 98 Orders Electrocardiogram (04/19/16 ) Complete Blood Count With Diff (04/19/16 15:17) Basic Metabolic Panel (Bmp) (04/19/16 15:17) Ckmb (Isoenzyme) Profile (04/19/16 15:17) Magnesium (Mg) (04/19/16 15:17) Prothrombin Time / Inr (Pt) (04/19/16 15:17) Act Partial Throm Time (Ptt) (04/19/16 15:17) Troponin I (04/19/16 15:17) Chest, Single Ap (04/19/16 15:17) CKMB (04/19/16 16:18) CKMB% (04/19/16 16:18) Hydroxyzine Pamoate (Vistaril) (04/19/16 18:30) Labs Laboratory Tests Test 04/19/16 16:18 White Blood Count 7.6 TH/MM3 Red Blood Count 4.58 MIL/MM3 Hemoglobin 15.7 GM/DL Hematocrit 44.0 % Mean Corpuscular Volume 96.1 FL Mean Corpuscular Hemoglobin 34.3 PG Mean Corpuscular Hemoglobin 35.7 % Concent Red Cell Distribution Width 12.1 % Platelet Count 218 TH/MM3 Mean Platelet Volume 9.5 FL Neutrophils (%) (Auto) 70.3 % Lymphocytes (%) (Auto) 19.3 % Monocytes (%) (Auto) 7.7 % Eosinophils (%) (Auto) 2.0 % Basophils (%) (Auto) 0.7 % Neutrophils # (Auto) 5.4 TH/MM3 Lymphocytes # (Auto) 1.5 TH/MM3 Monocytes # (Auto) 0.6 TH/MM3 Eosinophils # (Auto) 0.2 TH/MM3 Basophils # (Auto) 0.1 TH/MM3 CBC Comment DIFF FINAL Differential Comment Prothrombin Time 11.1 SEC Prothromb Time International 1.0 RATIO Ratio Activated Partial 24.5 SEC Thromboplast Time Sodium Level 141 MEQ/L Potassium Level 3.6 MEQ/L Chloride Level 106 MEQ/L Carbon Dioxide Level 24.8 MEQ/L Anion Gap 10 MEQ/L Blood Urea Nitrogen 21 MG/DL Creatinine 1.02 MG/DL Estimat Glomerular Filtration 89 ML/MIN Rate Random Glucose 76 MG/DL Calcium Level 9.3 MG/DL Magnesium Level 2.1 MG/DL Total Creatine Kinase 202 U/L Creatine Kinase MB 1.3 NG/ML Troponin I LESS THAN 0.02 NG/ML [facility] Medical Record Reviewed: Yes Supervised Visit with ALISHA: No Interpretation(s) EKG shows sinus rhythm with no sign of acute ischemia or arrhythmia. Read by me and attending. Troponin and CK-MB negative. Chest x-ray negative. CBC & BMP Diagram 04/19/16 16:18 Differential Diagnosis ACS versus chest pain versus a typical chest pain versus anxiety versus panic attack Narrative Course 25-year-old male that presents to the ED for evaluation of chest pain. Patient was properly examined and was found to have signs and symptoms consistent with appears to be anxiety. Patient was previously seen by Sravani SNIDER who started the workup. Case was signed out to me pending disposition. Labs and imaging were essentially unremarkable. I reassessed the patient and from history and physical this appears to be anxiety related. Patient was reassured. Patient's symptoms are completely gone but he does state that he feels somewhat anxious. He does also tell me that he is a heavy drinker as well as smoker. He does have a history of anxiety in the family as well as himself. He denies any other medical problems. At this time I think that the patient will benefit from a prescription for Vistaril to help with anxiety. I recommend that the patient follows up with PCP or psychiatry as outpatient for further workup of this. Patient is agreeable with this. Patient was reassured. I'll questions were answered to the best of my ability. See ED for worsening symptoms. Diagnosis Primary Impression: Anxiety Patient Instructions: General Instructions Additional Instruction: Take medication as prescribed. Follow-up with PCP. See ED worsening symptoms. Med/Other Pt SpecificInfo: Prescription(s) given Scripts Hydroxyzine Pamoate (Vistaril)50 Mg Cap50 Mg PO TID PRN (ANXIETY) #30 CAP Ref 0 Prov:Martina Lombardi MD 04/19/16 Disposition: 01 DISCHARGE HOME Condition: Stable Mil Tadeo Apr 19, 2016 18:30
--- NOTE | 2016-04-19 18:34 | PD ---
Data Data Last Documented VS Vital Signs Date Time Temp Pulse Resp B/P Pulse Ox O2 Delivery O2 Flow Rate FiO2 04/19/16 15:01 98.4 80 22 149/81 98 Orders Electrocardiogram (04/19/16 ) Complete Blood Count With Diff (04/19/16 15:17) Basic Metabolic Panel (Bmp) (04/19/16 15:17) Ckmb (Isoenzyme) Profile (04/19/16 15:17) Magnesium (Mg) (04/19/16 15:17) Prothrombin Time / Inr (Pt) (04/19/16 15:17) Act Partial Throm Time (Ptt) (04/19/16 15:17) Troponin I (04/19/16 15:17) Chest, Single Ap (04/19/16 15:17) CKMB (04/19/16 16:18) CKMB% (04/19/16 16:18) Hydroxyzine Pamoate (Vistaril) (04/19/16 18:30) Labs Laboratory Tests Test 04/19/16 16:18 White Blood Count 7.6 TH/MM3 Red Blood Count 4.58 MIL/MM3 Hemoglobin 15.7 GM/DL Hematocrit 44.0 % Mean Corpuscular Volume 96.1 FL Mean Corpuscular Hemoglobin 34.3 PG Mean Corpuscular Hemoglobin 35.7 % Concent Red Cell Distribution Width 12.1 % Platelet Count 218 TH/MM3 Mean Platelet Volume 9.5 FL Neutrophils (%) (Auto) 70.3 % Lymphocytes (%) (Auto) 19.3 % Monocytes (%) (Auto) 7.7 % Eosinophils (%) (Auto) 2.0 % Basophils (%) (Auto) 0.7 % Neutrophils # (Auto) 5.4 TH/MM3 Lymphocytes # (Auto) 1.5 TH/MM3 Monocytes # (Auto) 0.6 TH/MM3 Eosinophils # (Auto) 0.2 TH/MM3 Basophils # (Auto) 0.1 TH/MM3 CBC Comment DIFF FINAL Differential Comment Prothrombin Time 11.1 SEC Prothromb Time International 1.0 RATIO Ratio Activated Partial 24.5 SEC Thromboplast Time Sodium Level 141 MEQ/L Potassium Level 3.6 MEQ/L Chloride Level 106 MEQ/L Carbon Dioxide Level 24.8 MEQ/L Anion Gap 10 MEQ/L Blood Urea Nitrogen 21 MG/DL Creatinine 1.02 MG/DL Estimat Glomerular Filtration 89 ML/MIN Rate Random Glucose 76 MG/DL Calcium Level 9.3 MG/DL Magnesium Level 2.1 MG/DL Total Creatine Kinase 202 U/L Creatine Kinase MB 1.3 NG/ML Troponin I LESS THAN 0.02 NG/ML MDM Supervised Visit with ALISHA: Yes Narrative Course I, Dr. Lombardi, have reviewed the [facility] practice practioner's documentation and am in agreement, met with the patient face to face, made the diagnosis, and the medical decision making was done by me. *My assessment and Findings: 25-year-old healthy female here with left-sided chest pain and associated palpitations, nausea and slight sweating after he was in his backyard smoking a cigarette. Patient notes associated shortness of breath, palpitations in the sense of the world closing in on him. He denies any known history of cardiac disease and self or family, no history of WPW, prolonged QT syndrome, Brugada. Patient is anxious on exam, regular rate and rhythm, clear to auscultation bilaterally. My suspicion for anxiety is exceedingly high. Less likely arrhythmia, electrolyte abnormality, ACS. Patient's 12-lead EKG, laboratory workup and chest x-ray were unremarkable. When patient was reassured that these were normal he immediately felt better. Patient was encouraged to cut back on his alcohol, tobacco and caffeine use and follow-up as outpatient for his anxiety. Diagnosis Primary Impression: Anxiety Patient Instructions: General Instructions Additional Instruction: Take medication as prescribed. Follow-up with PCP. See ED worsening symptoms. Scripts Hydroxyzine Pamoate (Vistaril)50 Mg Cap50 Mg PO TID PRN (ANXIETY) #30 CAP Ref 0 Prov:Martina Lombardi MD 04/19/16 Disposition: 01 DISCHARGE HOME Condition: Stable Martina Lombardi MD Apr 19, 2016 18:33
--- NOTE | 2016-04-20 18:18 | EKG ---
Date Performed: 04/19/2016 Time Performed: 16:46:53 PTAGE: 25 years EKG: Sinus rhythm NORMAL ECG NO PREVIOUS TRACING DOCTOR: Rodolfo Jacob Interpretating Date/Time 04/20/2016 18:13:38
== END 2016-04-19 18:40 | disposition home or self-care (01) ==
LOC: NETRI 14:58 → NEPE 18:40
DX: F41.9 Anxiety disorder, unspecified (principal); F17.210 Nicotine dependence, cigarettes, uncomplicated
CPT/HCPCS: 71010; 80048; 82550; 82552; 83735; 84484; 85025; 85610; 85730; 93005

== ENCOUNTER 2016-08-13 20:36 | Emergency (ER) | payer SELFPAY ==
[~2016-08-13 20:36] MED LIST changes: -PERC5TAB12 PO; -TAMS5CAP PO; +VIST50CA PO
--- NOTE | 2016-08-13 20:42 | PD ---
HPI Chief Complaint: etoh Time Seen by Provider: 20:42 Travel History International Travel<30 days: No Contact w/Intl Traveler<30days: No Traveled to known affect area: No History of Present Illness HPI 26-year-old male with no significant medical history presents to the emergency department for evaluation. Patient states he has had a large amount of alcohol to drink this evening. He is uncertain of the circumstance that surrounds him coming to the emergency department. Denies any trauma. Denies any pain. Denies any illicit drug use. He has no other symptoms reported this time. [facility] Past Medical History Anxiety: Yes Diminished Hearing: No Kidney Stones: Yes Social History Alcohol Use: Yes (beer ) Tobacco Use: Yes (02/18 PPD ) Substance Use: No Allergies-Medications (Allergen,Severity, Reaction): Coded Allergies: No Known Allergies (Unverified , 04/19/16) Reported Meds & Prescriptions Reported Meds & Active Scripts Active Vistaril (Hydroxyzine Pamoate) 50 Mg Cap 50 Mg PO TID PRN Review of Systems ROS Limitations: Intoxication Except as stated in HPI: all other systems reviewed are Neg Physical Exam Exam Limitations: Intoxication Narrative GENERAL: Well-nourished male patient, in no acute distress. Patient does have the and injured rollover him. He is clinically intoxicated with slurred speech and smells of alcohol. SKIN: Focused skin assessment warm/dry. HEAD: Atraumatic. Normocephalic. EYES: Pupils equal and round. No scleral icterus. No injection or drainage. ENT: No nasal bleeding or discharge. Mucous membranes pink and moist. NECK: Trachea midline. No JVD. CARDIOVASCULAR: Tachycardic rate and rhythm. No murmur appreciated. RESPIRATORY: No accessory muscle use. Clear to auscultation. Breath sounds equal bilaterally. GASTROINTESTINAL: Abdomen soft, non-tender, nondistended. Hepatic and splenic margins not palpable. MUSCULOSKELETAL: No obvious deformities. No clubbing. No cyanosis. No edema. NEUROLOGICAL: Awake and alert. No obvious cranial nerve deficits. Motor grossly within normal limits. Slurred speech. Data Data Last Documented VS Vital Signs Date Time Temp Pulse Resp B/P Pulse Ox O2 Delivery O2 Flow Rate FiO2 08/13/16 20:45 18 97 Room Air 08/13/16 20:45 98.5 105 110/56 Orders Iv Access Insert/Monitor (08/13/16 20:55) Complete Blood Count With Diff (08/13/16 20:55) Basic Metabolic Panel (Bmp) (08/13/16 20:55) Alcohol (Ethanol) (08/13/16 20:55) Sodium Chlor 0.9% 1000 Ml Inj (Ns 1000 M (08/13/16 21:00) Thiamine Inj (Thiamine Inj) (08/13/16 21:00) Labs Laboratory Tests Test 08/13/16 22:10 White Blood Count 5.7 TH/MM3 Red Blood Count 3.92 MIL/MM3 Hemoglobin 13.4 GM/DL Hematocrit 38.7 % Mean Corpuscular Volume 98.8 FL Mean Corpuscular Hemoglobin 34.3 PG Mean Corpuscular Hemoglobin 34.7 % Concent Red Cell Distribution Width 13.1 % Platelet Count 236 TH/MM3 Mean Platelet Volume 8.9 FL Neutrophils (%) (Auto) 64.3 % Lymphocytes (%) (Auto) 26.2 % Monocytes (%) (Auto) 6.6 % Eosinophils (%) (Auto) 2.2 % Basophils (%) (Auto) 0.7 % Neutrophils # (Auto) 3.6 TH/MM3 Lymphocytes # (Auto) 1.5 TH/MM3 Monocytes # (Auto) 0.4 TH/MM3 Eosinophils # (Auto) 0.1 TH/MM3 Basophils # (Auto) 0.0 TH/MM3 CBC Comment DIFF FINAL Differential Comment Sodium Level 141 MEQ/L Potassium Level 3.8 MEQ/L Chloride Level 109 MEQ/L Carbon Dioxide Level 24.8 MEQ/L Anion Gap 7 MEQ/L Blood Urea Nitrogen 11 MG/DL Creatinine 0.81 MG/DL Estimat Glomerular Filtration 115 ML/MIN Rate Random Glucose 97 MG/DL Calcium Level 8.1 MG/DL Ethyl Alcohol Level 289 MG/DL [facility] Medical Decision Making Medical Screen Exam Complete: Yes Emergency Medical Condition: Yes Medical Record Reviewed: Yes Differential Diagnosis Intoxication versus substance abuse versus electrolyte abnormality versus psychiatric disorder Narrative Course 26-year-old male presents to the emergency department for evaluation of intoxication. Patient appears without distress. He is clinically intoxicated however. He does follow commands and responds appropriately to simple questions. Laboratory Tests Test 08/13/16 22:10 White Blood Count 5.7 TH/MM3 Red Blood Count 3.92 MIL/MM3 Hemoglobin 13.4 GM/DL Hematocrit 38.7 % Mean Corpuscular Volume 98.8 FL Mean Corpuscular Hemoglobin 34.3 PG Mean Corpuscular Hemoglobin 34.7 % Concent Red Cell Distribution Width 13.1 % Platelet Count 236 TH/MM3 Mean Platelet Volume 8.9 FL Neutrophils (%) (Auto) 64.3 % Lymphocytes (%) (Auto) 26.2 % Monocytes (%) (Auto) 6.6 % Eosinophils (%) (Auto) 2.2 % Basophils (%) (Auto) 0.7 % Neutrophils # (Auto) 3.6 TH/MM3 Lymphocytes # (Auto) 1.5 TH/MM3 Monocytes # (Auto) 0.4 TH/MM3 Eosinophils # (Auto) 0.1 TH/MM3 Basophils # (Auto) 0.0 TH/MM3 CBC Comment DIFF FINAL Differential Comment CBC is without acute concern. BMP and EtOH are still pending. Pending no other acute lab abnormality, patient will be monitored until he is clinically sober at which time he'll be discharged home. BMP is without acute concern. Pt does have a hypocalcemia of 8.1. EtOH is 289. He will be monitored until he is clinically sober, at which time he'll be discharged home. Diagnosis Primary Impression: Alcohol intoxication Qualified Code: F10.929 - Alcohol intoxication, with unspecified complication Additional Impression: Hypocalcemia Referrals: [facility] (Out patient) Primary Care Physician Patient Instructions: Abuse of Alcohol (ED), Calcium Supplement (By mouth), General Instructions Additional Instructions: It is important to drink alcohol moderation. Follow-up with a primary care provider Return immediately with any acute worsening symptoms Med/Other Pt SpecificInfo: No Change to Meds Disposition: 01 DISCHARGE HOME Condition: Stable Sravani Cueto Aug 13, 2016 20:42
[2016-08-13 20:45] VITALS: BP 110/56; PULSE 105; RESP 16; TEMP 98.5; O2SAT 96
[2016-08-13] MEDS ORDERED: THIAMINE INJ 100 MG in SODIUM CHLORIDE 0.9% INJ 100 ML IV ONE (21:00)
[2016-08-13] MEDS ORDERED: SODIUM CHLOR 0.9% 1000 ML INJ 1,000 ML IV ONE (21:00)
[2016-08-13 22:24] LABS: AUTOMATED NEUTROPHIL # 3.6 TH/MM3 (1.8-7.7); BASOPHIL % 0.7 % (0.0-2.0); EOSINOPHIL # 0.1 TH/MM3 (0-0.4); EOSINOPHIL % 2.2 % (0.0-4.0); HEMATOCRIT 38.7 % (39.0-51.0); HEMO FLAGS DIFF FINAL; LYMPH % 26.2 % (9.0-44.0); LYMPHOCYTE # 1.5 TH/MM3 (1.0-4.8); MEAN CELL VOLUME 98.8 FL (80.0-100.0); MEAN CORPUSCULAR HEMOGLOBIN 34.3 PG (27.0-34.0); MEAN CORPUSCULAR HGB CONC 34.7 % (32.0-36.0); MONO % 6.6 % (0.0-8.0); NEUT % 64.3 % (16.0-70.0); PLATELET COUNT 236 TH/MM3 (150-450); RED BLOOD COUNT 3.92 MIL/MM3 (4.50-5.90); RED CELL DISTRIBUTION WIDTH 13.1 % (11.6-17.2); WHITE BLOOD COUNT 5.7 TH/MM3 (4.0-11.0)
[2016-08-13 22:40] LABS: BICARBONATE 24.8 MEQ/L (21.0-32.0); POTASSIUM 3.8 MEQ/L (3.5-5.1)
[2016-08-13 22:57] VITALS: BP_SYST 100; BP_SYST 118; BP_DIAS 52; BP_DIAS 60; PULSE 77; PULSE 89; RESP 16; O2SAT 96
[2016-08-14 02:40] VITALS: BP 97/50; PULSE 73; RESP 14; O2SAT 96
== END 2016-08-14 06:25 | disposition home or self-care (01) ==
LOC: NEPE 20:36
DX: F10.129 Alcohol abuse with intoxication, unspecified (principal); Y90.8 Blood alcohol level of 240 mg/100 ml or more; E83.51 Hypocalcemia; F17.210 Nicotine dependence, cigarettes, uncomplicated
CPT/HCPCS: 80048; 80307; 85025; 96365; 99284; J3411; J7030

== ENCOUNTER 2017-05-18 09:47 | Emergency (ER) | payer OTHER ==
[~2017-05-18] VITALS: Ht 167.6 cm; Wt 90.0 kg
[2017-05-18 09:49] VITALS: BP 141/78; PULSE 75; RESP 15; TEMP 98.4; O2SAT 100
--- NOTE | 2017-05-18 10:11 | PD ---
HPI Chief Complaint: Back/ Neck Pain or Injury Time Seen by Provider: 09:55 Travel History International Travel<30 days: No Contact w/Intl Traveler<30days: No Traveled to known affect area: No History of Present Illness HPI 26-year-old male presents to the emergency department with complaint of low back pain that started on Friday while at work after performing his work duties. He says he does a lot of lifting and twisting. 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 Says his back locked up. Says it was so painful that he was hyperventilating and his fingers, toes, and lips became numb. Denies traumatic injury. He denies encopresis, incontinence, saddle anesthesias. Denies paresthesias, loss of sensation, decreased range of motion, decreased strength all extremities. Reports being ambulatory. Denies IV drug use, cancer. Denies fever, vomiting, abdominal pain. Denies change in urine or stool. Rates pain 10/10. Worse with sitting down. Better with laying on his stomach. Has tried taking ibuprofen. Denies radiation of pain. No primary care provider. No significant past medical history. No known allergies. Has no other medical complaints. No other modifying factors or associated signs and symptoms. PFSH Past Medical History Anxiety: Yes Diminished Hearing: No Genitourinary: Yes Kidney Stones: Yes Psychiatric: Yes Tetanus Vaccination: > 5 Years Influenza Vaccination: No Past Surgical History Surgical History: No Previous Surgery Social History Alcohol Use: Yes (beer ) Tobacco Use: Yes (1/2 PPD ) Substance Use: No Allergies-Medications (Allergen,Severity, Reaction): Coded Allergies: No Known Allergies (Unverified Adverse Reaction, Unknown, 05/18/17) Reported Meds & Prescriptions Reported Meds & Active Scripts Active Medrol Dosepak (Methylprednisolone) 4 Mg Dspk 4 Mg PO DIRECTED Per Pharmacist direction Robaxin (Methocarbamol) 500 Mg Tab 500 Mg PO QID PRN Ibuprofen 800 Mg Tab 800 Mg PO Q6HR PRN Percocet (Oxycodone-Acetaminophen) 5-325 mg Tab 1 Tab PO Q4H PRN Review of Systems Except as stated in HPI: all other systems reviewed are Neg Physical Exam Narrative GENERAL: Well-nourished, well-developed male patient, in no acute distress; afebrile, nontoxic-appearing; patient became diaphoretic during physical exam and appeared painful SKIN: Warm and dry. HEAD: Atraumatic. Normocephalic. EYES: Pupils equal and round. No scleral icterus. No injection or drainage. ENT: Mucosa pink and moist. Airway patent. NECK: Trachea midline. CARDIOVASCULAR: Regular rate. RESPIRATORY: No accessory muscle use. GASTROINTESTINAL: Abdomen soft, non-tender, nondistended. MUSCULOSKELETAL: Bilateral lower extremities supple and non-tense with 2+ pedal pulses and sensory intact; with full range of motion and 5/5 strength. 2 + DTRs bilaterally. Active dorsiflexion and extension of bilateral feet. Bilateral straight leg raise is positive for low back pain; Right worse than left. ambulatory in room with guarded gait. Sitting up in bed at 90. No obvious deformities. No clubbing. No cyanosis. No edema. BACK: midline point tenderness on palpation of the lumbar spine. Tenderness on palpation of right lumbar paraspinal and iliosacral area. No obvious deformities. NEUROLOGICAL: Awake and alert. Oriented 3. No obvious cranial nerve deficits. Motor grossly within normal limits. Normal speech. Moves all extremities. 5/5 strength to all extremities. Sensory intact. PSYCHIATRIC: Appropriate mood and affect; insight and judgment normal. Data Data Last Documented VS Vital Signs Date Time Temp Pulse Resp B/P (MAP) Pulse Ox O2 Delivery O2 Flow Rate FiO2 05/18/17 09:49 98.4 75 15 141/78 (99) 100 Orders Orders Ketorolac Inj (Toradol Inj) (05/18/17 10:15) Orphenadrine Inj (Norflex Inj) (05/18/17 10:15) Spine, Lumbar - Ltd (Ap & Lat) (05/18/17 10:13) Oxycodone-Acetamin 10-325 Mg (Percocet 1 (05/18/17 11:00) Ed Discharge Order (05/18/17 13:04) [facility] Medical Decision Making Medical Screen Exam Complete: Yes Emergency Medical Condition: Yes Medical Record Reviewed: Yes Differential Diagnosis Herniated disc, sciatica, nerve compression, low back strain, acute low back pain Narrative Course 26-year-old male with acute low back pain and low back strain. No traumatic injury. Denies encopresis, incontinence, saddle anesthesias. Denies IV drug use or cancer. Neuro exam is unremarkable. Patient is able to ambulate in the room with a guarded gait. He does have midline tenderness on palpation of the lumbar spine. I discussed the patient with my attending physician, Dr. Noel, and she agrees with my plan of care. 1259: Lumbar x-ray concluded: Last 24 hours Impressions Lumbar Spine X-Ray 05/18/17 1013 Signed Impressions: Service Date/Time: Thursday, May 18, 2017 11:33 - CONCLUSION: Unremarkable exam. Nolan Ferrell MD Discussed x-ray findings with the patient. A short course of Percocet, ibuprofen, Robaxin, Medrol Dosepak prescribed for home. Instructed patient to follow up with primary care provider. Patient verbalizes understanding and agreement with treatment plan. Patient is medically cleared and stable for discharge. Discussed reasons to return to the emergency department. Patient agrees with treatment plan. The patients vital signs are stable and the patient is stable for outpatient follow-up and treatment. Patient discharged home, stable and in no acute distress. Diagnosis Primary Impression: Low back strain Qualified Codes: S39.012A - Strain of muscle, fascia and tendon of lower back , initial encounter Additional Impression: Acute low back pain Qualified Codes: M54.5 - Low back pain Referrals: Primary Care Physician Patient Instructions: Acute Low Back Pain (ED), General Instructions, Low Back Strain (ED) Additional Instructions: Tylenol or ibuprofen as directed and as needed for pain Robaxin as prescribed and as needed for muscle spasms Heating pad and/or ice to affected area to reduce pain Avoid aggravating activities; increase activity as tolerated Follow-up with primary care provider Return to emergency department immediately with worsening of symptoms Med/Other Pt SpecificInfo: Prescription(s) given Scripts Methylprednisolone Dosepak (Medrol Dosepak) 4 Mg Dspk 4 MG PO DIRECTED, #1 DSPK 0 Refills Per Pharmacist direction Prov: Anna Reyes [employer]CR[employer] ST[employer] 05/18/17 Methocarbamol (Robaxin) 500 Mg Tab 500 MG PO QID Y for MUSCLE SPASM, #30 TAB 0 Refills Prov: Anna Reyes [employer]CR[employer]IAL STENOGR[employer]HER 05/18/17 Ibuprofen (Ibuprofen) 800 Mg Tab 800 MG PO Q6HR Y for PAIN, #30 TAB 0 Refills Prov: Anna Reyes 05/18/17 Oxycodone-Acetaminophen (Percocet) 5-325 mg Tab 1 TAB PO Q4H Y for PAIN, #8 TAB 0 Refills Prov: Anna Reyes 05/18/17 Disposition: 01 DISCHARGE HOME Condition: Stable Anna Reyes May 18, 2017 10:11
[2017-05-18] MEDS ORDERED: ORPHENADRINE INJ 60 MG/2 ML AMP IM ONE (10:15)
[2017-05-18] MEDS ORDERED: KETOROLAC TROMETHAMINE 60 MG/2 ML (IM) VIAL IM ONE (10:15)
--- NOTE | 2017-05-18 10:46 | PD ---
Physical Exam Date Seen by Provider: May 18, 2017 Narrative This patient presents with back pain. He had the onset of a backache several days ago but the pain became acutely worse today with heavy lifting. The pain is confined to the low back. He denies any fever. He is not an IV drug user. He denies saddle anesthesia, overflow incontinence, leg weakness. Pain is exacerbated by movement. Data Data Last Documented VS Vital Signs Date Time Temp Pulse Resp B/P (MAP) Pulse Ox O2 Delivery O2 Flow Rate FiO2 05/18/17 09:49 98.4 75 15 141/78 (99) 100 Orders Orders Ketorolac Inj (Toradol Inj) (05/18/17 10:15) Orphenadrine Inj (Norflex Inj) (05/18/17 10:15) Spine, Lumbar - Ltd (Ap & Lat) (05/18/17 10:13) MDM Supervised Visit with ALISHA: Yes Narrative Course I, Dr. Noel, have reviewed the advance practice practitioner's documentation and am in agreement, met with the patient face to face, made the diagnosis, and the medical decision making was done by me. *My assessment and Findings: Awake and alert. Tender in the lower lumbar/upper sacral back. Distally neurovascularly intact. Please see Anna Reyes NP's note for results of laboratory and radiographic evaluation, ED course, final diagnosis and disposition Referrals: Primary Care Physician Scripts No Active Prescriptions or Reported Meds Candace Noel MD May 18, 2017 10:46
[2017-05-18] MEDS ORDERED: oxyCODONE/ACETAMINOPHEN 10 MG/325 MG TAB PO ONE (11:00)
--- NOTE | 2017-05-18 12:16 | RADRPT ---
EXAM DATE/TIME: 05/18/2017 11:33 [facility] COMPARISON: No previous studies available for comparison. INDICATIONS : Patient complaining of lower back pain after work injury. MEDICAL HISTORY : None. SURGICAL HISTORY : None. ENCOUNTER: Initial ACUITY: 4 - 6 days PAIN SCORE: 6/10 LOCATION: Lumbar. FINDINGS: Two view examination was performed. There are five non-rib bearing vertebral bodies. The vertebral bodies are in normal alignment without evidence of subluxation or scoliosis. The disc spaces are celine ntained. The pedicles are intact. Bony mineralization is normal. No fracture is identified. CONCLUSION: Unremarkable exam. Nolan Ferrell MD on May 18, 2017 at 12:14 Board Certified Radiologist. This report was verified electronically.
[2017-05-18] MEDS ORDERED: PERC5TAB12 PO (13:03)
[2017-05-18] MEDS ORDERED: ROBA500T PO (13:03)
[2017-05-18] MEDS ORDERED: IBUP1TAB7 PO (13:03)
[2017-05-18] MEDS ORDERED: MEDR4PAK PO (13:03)
== END 2017-05-18 13:37 | disposition home or self-care (01) ==
LOC: NEPD 09:47
DX: S39.012A Strain of muscle, fascia and tendon of lower back, initial encounter (principal); F41.9 Anxiety disorder, unspecified; R06.4 Hyperventilation; F17.200 Nicotine dependence, unspecified, uncomplicated; Z87.442 Personal history of urinary calculi; X50.1XXA Overexertion from prolonged static or awkward postures, initial encounter; Y99.0 Civilian activity done for income or pay
CPT/HCPCS: 72100; 96372; 99283; J1885; J2360